=== PATIENT | male | born 1985 | race African-American/Black ===

== ENCOUNTER 2022-11-14 12:00 | Emergency (ER) | payer OTHER, SELFPAY ==
[2022-11-14] MEDS ORDERED: Bacitracin 1 PK ONE (12:39)
[2022-11-14] MEDS ORDERED: Amoxicillin/Potassium Clav 875 MG TAB ONE (13:17)
[2022-11-14] MEDS ORDERED: Boostrix 0.5 ML (Tdap) VIAL (>/=7 yrs of age) ONE (13:17)
[2022-11-14] MEDS ORDERED: Lidocaine 1% (PF) 30 ML VIAL ONE (14:00)
[2022-11-14] MEDS ORDERED: HYDROcodone/Acetaminophen 5/325 mg Tablet ONE (14:00)
== END 2022-11-14 15:48 | disposition home or self-care (01) ==
LOC: NAV ERS 12:00
DX: S62.657B Nondisplaced fracture of middle phalanx of left little finger, initial encounter for open fracture (principal); S51.851A Open bite of right forearm, initial encounter; E11.9 Type 2 diabetes mellitus without complications; F17.210 Nicotine dependence, cigarettes, uncomplicated; W54.0XXA Bitten by dog, initial encounter; Z23 Encounter for immunization
CPT/HCPCS: 12002; 36416; 90471; 90715; J2001

== ENCOUNTER 2022-12-05 12:34 | Emergency (ER) | payer SELFPAY ==
[2022-12-05] MEDS ORDERED: Bacitracin 1 PK ONE (13:32)
[2022-12-05] MEDS ORDERED: HYDROcodone/Acetaminophen 5/325 mg Tablet ONE (13:32)
== END 2022-12-05 14:00 | disposition home or self-care (01) ==
LOC: NAV ERS 12:34
DX: T81.41XA Infection following a procedure, superficial incisional surgical site, initial encounter (principal); E11.9 Type 2 diabetes mellitus without complications; F17.210 Nicotine dependence, cigarettes, uncomplicated
CPT/HCPCS: 36416; 87070; 87077; 87186; 87205; 99283

== ENCOUNTER 2023-05-18 18:42 | Emergency (ER) | payer SELFPAY ==
[2023-05-18 19:21] LABS: #Basophils 0.1 thou/uL (0.0-0.2); #Eosinphils 0.1 thou/uL (0.0-0.7); #Lymphocytes 2.1 thou/uL (1.20-3.40); #Monocytes 0.4 thou/uL (0.11-0.59); #Neutrophils 1.9 thou/uL (1.40-6.50); %Basophils 1.6 % (0.0-1.0); %Eosinophils 1.8 % (0.0-10.0); %Lymphocytes 47.5 % (21.0-51.0); %Monocytes 7.9 % (0.0-10.0); %Neutrophils 41.3 % (42.0-75.0); Hematocrit 42.5 % (42.0-52.0); Hemoglobin 13.8 g/dL (14.0-18.0); Mean Corpuscular HGB CONC 32.4 g/dL (32.0-36.0); Mean Corpuscular Hemoglobin 26.7 pg (27.0-31.0); Mean Corpuscular Volume 82.6 fl (78.0-98.0); Mean Platelet Volume 9.5 fL (7.4-10.4); Platelet Count 200 10x3/uL (130-400); RBC Distribution Width 15.4 % (11.5-14.5); Red Blood Cell (RBC) Count 5.15 mill/uL (4.70-6.10); White Blood Cell (WBC) Count 4.5 10x3/uL (4.8-10.8)
[2023-05-18 19:30] LABS: ALT (SGPT) 25 U/L (8-55); AST (SGOT) 31 U/L (5-34); Albumin 4.2 g/dL (3.5-5.0); Alkaline Phosphatase 59 U/L (40-110); Anion Gap 15 mmol/L (10-20); BUN (Urea Nitrogen) 11 mg/dL (8.9-20.6); Bilirubin, Total 0.6 mg/dL (0.2-1.2); CK (CPK) 566 U/L (30-200); Calc. Creatinine Clearance 0 mL/min (70-130); Calcium 9.6 mg/dL (7.8-10.44); Carbon Dioxide 25 mmol/L (22-29); Chloride 105 mmol/L (98-107); Estimated GFR 75; Globulin 3.2 g/dL (2.4-3.5); Glucose 101 mg/dL (70-105); Potassium 2.9 mmol/L (3.5-5.1); Protein, Total 7.4 g/dL (6.0-8.3); Sodium 142 mmol/L (136-145)
[2023-05-18] MEDS ORDERED: Sodium Chloride 0.9% 1,000 ML ONE (19:38)
[2023-05-18] MEDS ORDERED: Potassium Chloride 20 MEQ TAB ONE (19:38)
[2023-05-18] MEDS ORDERED: Potassium Chloride 10 MEQ/100 ML PREMIX BAG ONE (19:38)
[2023-05-18 21:09] LABS: Bilirubin Negative (Negative); Blood, Urine Negative (Negative); Clarity Clear (Clear); Glucose, Urine (Dipstick) Negative (Negative); Ketone, Urine Trace mg/dL (Negative); Leukocyte Negative (Negative); Nitrite Negative (Negative); Protein, Urine (Dipstick) 30 mg/dL (Neg-Trace)
[2023-05-18 21:14] LABS: RBC/HPF 0-3 HPF (0-3)
[2023-05-18 21:15] LABS: Amphetamine Detected (NotDetected); Barbiturates Screen Not Detected (NotDetected); Benzodiazepine Screen Not Detected (NotDetected); Cocaine Metabolite Screen Not Detected (NotDetected); Methadone Not Detected (NotDetected); Methamphetamine Detected (NotDetected); Opiate Screen Not Detected (NotDetected); Oxycodone Screen Not Detected (NotDetected); Phencyclidine (PCP) Not Detected (NotDetected); THC/Cannabinoid Screen Not Detected (NotDetected); Tricyclic Screen Not Detected (NotDetected)
== END 2023-05-18 22:00 ==
LOC: NAV ERS 18:42
DX: E86.0 Dehydration (principal); F15.10 Other stimulant abuse, uncomplicated; R03.0 Elevated blood-pressure reading, without diagnosis of hypertension; E11.9 Type 2 diabetes mellitus without complications; F17.210 Nicotine dependence, cigarettes, uncomplicated
CPT/HCPCS: 36416; 80053; 80306; 81001; 82550; 83605; 84443; 85025; 93005; 96361; 96365; 36415-59; J3480; J7050